=== PATIENT | male | born 1945 | race Caucasian/White ===

== ENCOUNTER 2018-12-29 11:13 | Emergency (ER) | payer MEDICARE, OTHER ==
[~2018-12-29] VITALS: Ht 182.9 cm; Wt 96.2 kg
--- NOTE | 2018-12-29 11:20 | NUR ---
PATIENT ARRIVED TO [facility]4. AMBULATORY. C/O OF 4 OUT OF 10 PAIN IN RECTAL AREA. C/O CONSTIPATION. BS ACTIVE X4. RLQ PAIN WITH PALPATION. ABD DISTENDED AND SOFT. STATES HE TOOK A LAXATIVE AN HOUR PRIOR TO ED ARRIVAL. UNABLE TO SIT. PREFERS TO STAND WITH PAIN. VS WNL.
[2018-12-29 11:36] VITALS: BP 138/82
--- NOTE | 2018-12-29 12:15 | ER.PDOC ---
General Chief Complaint: Requesting Medical Care Stated Complaint: ABD PAIN, CONSTIPATION TRAVEL OUT OF US: No Time seen by MD: 12:14 Source: patient Exam Limitations: no limitations History of Present Illness Initial Comments Constipation and abdominal discomfort for 3 days Severity: moderate Associated Symptoms: denies symptoms Past Medical History Medical History: coronary artery disease, cardiac problems, high cholesterol, hypertension Surgical History: cardiac cath Social History Smoking: non-smoker Alcohol Use: heavy Review of Systems Constitutional: no symptoms reported EENTM: no symptoms reported Respiratory: no symptoms reported Cardiovascular: no symptoms reported Gastrointestinal: see HPI All Other Systems: Reviewed and Negative Physical Exam General Appearance: No Apparent Distress, WD/WN Neck: Non-Tender, Full Range of Motion, Supple, Normal Inspection Respiratory: chest non-tender, lungs clear, normal breath sounds, no respiratory distress CVS: reg rate & rhythm, no murmur, no gallop, pulses nml, nml capillary refill Gastrointestinal: Normal Bowel Sounds, No Organomegaly, No Pulsatile Mass, Non Tender Rectal: Hemorrhoids Back: Normal Inspection Extremities: Normal Range of Motion Neurologic/Psychiatric: facility supervisor II-XII NML as Tested Skin: Normal Color Results/Orders Results/Orders Laboratory Tests Test 12/29/18 12:12 White Blood Count 13.5 10^3/uL (4.5-11.0) Red Blood Count 4.57 10^6/uL (4.50-5.90) Hemoglobin 14.6 g/dL (13.9-16.3) Hematocrit 43.1 % (37.0-53.0) Mean Corpuscular Volume 94.3 fL (78-100) Mean Corpuscular Hemoglobin 31.9 pg (26-34) Mean Corpuscular Hemoglobin Concent 33.9 g/dL (33-37) Red Cell Distribution Width 13.5 % (11.5-14.5) Platelet Count 278 10^3/uL (150-400) Mean Platelet Volume 9.9 fL (7.8-11.0) Neutrophils (%) (Auto) 77.2 % (41.0-85.0) Lymphocytes (%) (Auto) 12.5 % (24.0-44.0) Monocytes (%) (Auto) 8.8 % (5.0-12.0) Neutrophils # (Auto) 10.5 10^3/uL (1.8-7.7) Lymphocytes # (Auto) 1.7 10^3/uL (1.0-4.8) Monocytes # (Auto) 1.2 10^3/uL (0.3-0.8) Absolute Immature Granulocyte (auto 0.02 10^3 u/L (0-2) Eosinophils % 1.0 % (0.0-5.0) Basophils % 0.4 % (0.0-0.2) Basophils # 0.1 10^3/uL (0.0-0.1) Eosinophil Count 0.1 10^3/uL (0.0-0.2) Sodium Level 135 mmol/L (132-145) Potassium Level 4.3 mmol/L (3.6-5.2) Chloride Level 99.0 mmol/L (96-109) Carbon Dioxide Level 26.3 mmol/L (20.0-32) Anion Gap 14.0 Blood Urea Nitrogen 27 mg/dL (7-18) Creatinine 1.27 mg/dL (0.59-1.40) Estimated GFR () 67.1 (>/=60) BUN/Creatinine Ratio 21.0 Glucose Level 114 mg/dL (70-110) Calcium Level 9.5 mg/dL (8.4-10.5) Total Bilirubin 0.9 mg/dL (0.2-1.0) Aspartate Amino Transf (AST/SGOT) 33 U/L (0-35) Alanine Aminotransferase (ALT/SGPT) 45 U/L (12-78) Alkaline Phosphatase 105 U/L (50-136) Total Protein 7.7 g/dL (6.4-8.2) Albumin 4.1 g/dL (3.4-5.0) Globulin 3.6 Percent Immature Gran (Cell Imm) 0.10 % (0.00-0.50) Progress Progress XR abdomen: No evidence of bowel obstruction or free air. 2. Moderate stool in the ascending colon and rectum. 3. Additional chronic findings, as above. Patient had a good bowel movement in the ED after I did a rectal exam and felt better. Course Vitals & review Data Vital Sign - Last 24 Hours 12/29/18 12/29/18 12/29/18 11:21 11:21 11:36 Temp 97.7 97.7 97.7 97.7 97.7 97.7 Pulse 82 86 82 Resp 16 16 16 B/P (MAP) 138/82 (100) Pulse Ox 98 98 O2 Delivery Room Air Room Air Laboratory Tests Test 12/29/18 12:12 White Blood Count 13.5 10^3/uL Red Blood Count 4.57 10^6/uL Hemoglobin 14.6 g/dL Hematocrit 43.1 % Mean Corpuscular Volume 94.3 fL Mean Corpuscular Hemoglobin 31.9 pg Mean Corpuscular Hemoglobin Concent 33.9 g/dL Red Cell Distribution Width 13.5 % Platelet Count 278 10^3/uL Mean Platelet Volume 9.9 fL Neutrophils (%) (Auto) 77.2 % Lymphocytes (%) (Auto) 12.5 % Monocytes (%) (Auto) 8.8 % Neutrophils # (Auto) 10.5 10^3/uL Lymphocytes # (Auto) 1.7 10^3/uL Monocytes # (Auto) 1.2 10^3/uL Absolute Immature Granulocyte (auto 0.02 10^3 u/L Eosinophils % 1.0 % Basophils % 0.4 % Basophils # 0.1 10^3/uL Eosinophil Count 0.1 10^3/uL Sodium Level 135 mmol/L Potassium Level 4.3 mmol/L Chloride Level 99.0 mmol/L Carbon Dioxide Level 26.3 mmol/L Anion Gap 14.0 Blood Urea Nitrogen 27 mg/dL Creatinine 1.27 mg/dL Estimated GFR () 67.1 BUN/Creatinine Ratio 21.0 Glucose Level 114 mg/dL Calcium Level 9.5 mg/dL Total Bilirubin 0.9 mg/dL Aspartate Amino Transf (AST/SGOT) 33 U/L Alanine Aminotransferase (ALT/SGPT) 45 U/L Alkaline Phosphatase 105 U/L Total Protein 7.7 g/dL Albumin 4.1 g/dL Globulin 3.6 Percent Immature Gran (Cell Imm) 0.10 % Sepsis Infection Criteria Pres: None O2 Sat by Pulse Oximetry: 98 Departure Time of Disposition: 12:44 Disposition: 01 HOME, SELF-CARE Impression: Primary Impression: Constipation Condition: Stable Referrals: PCP,UNKNOWN (PCP) PRIMARY CARE PROVIDER Additional Instructions: Magnesium Citrate OTC as directed F/U with your PCP Duration or Time Spent with Pa: 60 mins Problem Qualifiers Primary Impression: Constipation Constipation type: unspecified constipation type Qualified Codes: K59.00 - Constipation, unspecified ZACHARIAH,THAO Tong MD Dec 29, 2018 12:15
[2018-12-29 12:17] LABS: BASOPHIL # 0.1 10^3/uL (0.0-0.1); BASOPHIL % 0.4 % (0.0-0.2); EOSINOPHIL # 0.1 10^3/uL (0.0-0.2); HEMOGLOBIN 14.6 g/dL (13.9-16.3); LYMPHOCYTES # 1.7 10^3/uL (1.0-4.8); LYMPHOCYTES % 12.5 % (24.0-44.0); MEAN CELL HGB 31.9 pg (26-34); MEAN CELL HGB CONCENTRATION 33.9 g/dL (33-37); MEAN CORP VOLUME 94.3 fL (78-100); MEAN PLATELET VOLUME 9.9 fL (7.8-11.0); MONOCYTES # 1.2 10^3/uL (0.3-0.8); MONOCYTES % 8.8 % (5.0-12.0); NEUTROPHIL # 10.5 10^3/uL (1.8-7.7); NEUTROPHILS % 77.2 % (41.0-85.0); RED CELL DISTRIBUTION WIDTH 13.5 % (11.5-14.5); WHITE BLOOD CELL 13.5 10^3/uL (4.5-11.0)
--- NOTE | 2018-12-29 12:17 | DIREP ---
PROCEDURE:XR ABDOMEN 2 VIEWS COMPARISON:None. INDICATIONS:Constipation TECHNIQUE:Flat and upright views of the abdomen are provided. FINDINGS: BOWEL GAS PATTERN:Nonobstructive. No free air. Moderate stool within the ascending colon and rectum. CALCIFICATIONS:No suspicious abdominal or pelvic calcification. Scattered atherosclerotic vascular calcification. LUNG BASES:Clear. BONES:Mild degenerative changes involving the lower thoracic spine, lumbar spine, bilateral hips. No acute abnormality. OTHER:No additional findings. CONCLUSION: 1. No evidence of bowel obstruction or free air. 2. Moderate stool in the ascending colon and rectum. 3. Additional chronic findings, as above. Dictated by: Kvng Kearney MD on 12/29/2018 at 12:15 PM
[2018-12-29 12:34] LABS: CALCIUM 9.5 mg/dL (8.4-10.5); CARBON DIOXIDE 26.3 mmol/L (20.0-32)
[2018-12-29 12:57] VITALS: BP 138/82
== END 2018-12-29 12:58 | disposition home or self-care (01) ==
LOC: ER 11:13
DX: K59.00 Constipation, unspecified (principal); I25.10 Atherosclerotic heart disease of native coronary artery without angina pectoris; I10 Essential (primary) hypertension; E78.00 Pure hypercholesterolemia, unspecified
CPT/HCPCS: 36415; 74019; 80053; 85025; 99284